=== PATIENT | male | born 1990 | race African-American/Black ===

== ENCOUNTER 2017-06-28 17:50 | Outpatient (CLI) ==
[2017-06-28 18:05] VITALS: BMI 38.0
== END 2017-06-28 17:51 ==
LOC: AMBL 17:50
PROVIDERS: ATTEND Internal Medicine
DX: E11.65 Type 2 diabetes mellitus with hyperglycemia (principal); R51 Headache; M79.605 Pain in left leg; M79.604 Pain in right leg

== ENCOUNTER 2017-06-28 18:00 | Emergency (ER) ==
[2017-06-28 18:05] VITALS: BP 131/93; TEMP 97.8; BMI 38.0
--- NOTE | 2017-06-28 18:39 | ED.PDOC ---
General ED Provider: Dr. MATTI MINER Chief Complaint: Headache Stated Complaint: headache Time Seen by Physician: 18:00 Mode of Arrival: Ambulance Information Source: Patient Exam Limitations: No limitations Nursing and Triage Documentation Reviewed and Agree: Yes Neurological Complaint Exam - Headache Complaint/Exam Onset: Gradual Duration: 1 day Symptoms Are: Resolved Timing: Intermittent Episodes Lasting: Hours Worst Headache Ever: No Initial Severity: Moderate Current Severity: None Location: Diffuse Character: Reports: Dull Aggravating: Reports: None Alleviating: Reports: None Associated Signs and Symptoms: Denies: Dizziness, Seizure, Nausea, Vomiting, Sinus pressure, Fever, Neck pain, Neck stiffness, Decreased LOC, Visual changes Related History: Reports: Similar episode Related Surgical History: Reports: None SAH Risk Factors: Reports: None Meningitis Risk Factors: Reports: None SDH Risk Factors: Reports: None Temporal Arteritis Risk Factors: Reports: None Normal Head CT Within Last 12 Months: No Fundoscopic Exam: Present: Normal Findings Papilledema Present: No Temporal Artery Tenderness: Present: None Sinus Tenderness: Present: None TMJ Tenderness: Present: None Glascow Coma Scale (see protocol): 15 Meningeal Signs Positive: No Pain on Passive Flexion-Positive Kernig's: No ROM Limited In: No Limitiations Focal Weakness: Present: None Focal Sensory Loss: Present: None Gait: Normal Nystagmus Present: No Gag Reflex Present: Yes [id number]: Normal Findings Babinski Sign: Negative Right, Negative Left Differential Diagnoses: Migraine, Tension Headache, Viral Syndrome Review of Systems - Review Of Systems Constitutional: Reports: No symptoms Eyes: Reports: No symptoms Ears, Nose, Mouth, Throat: Reports: No symptoms Respiratory: Reports: No symptoms Cardiac: Reports: No symptoms GI: Reports: No symptoms : Reports: No symptoms Musculoskeletal: Reports: No symptoms Skin: Reports: No symptoms Neurological: Reports: Headache Endocrine: Reports: No symptoms Hematologic/Lymphatic: Reports: No symptoms All Other Systems: Reviewed and Negative Past Medical History - Past Medical History Previously Healthy: Yes Endocrine: Reports: DM 2 Cardiovascular: Reports: Hypertension Respiratory: Reports: None Hematological: Reports: None Gastrointestinal: Reports: None Genitourinary: Reports: None Neuro/Psych: Reports: None Musculoskeletal: Reports: None Cancer: Reports: None - Surgical History General Surgical History: Reports: None - Family History Family History: Reports: None - Social History Smoking Status: Never smoker Hx Substance Use: No Alcohol Screening: None Physical Exam - Physical Exam Appearance: Well-appearing, No pain distress, Well-nourished Eyes: TERESA, EOMI, Conjunctiva clear ENT: Ears normal, Nose normal, Oropharynx normal Respiratory: Airway patent, Breath sounds clear, Breath sounds equal, Respirations nonlabored Cardiovascular: RRR, Pulses normal, No rub, No murmur GI/: Soft, Nontender, No masses, Bowel sounds normal, No Organomegaly Musculoskeletal: Normal strength, ROM intact, No edema, No calf tenderness Skin: Warm, Dry, Normal color Neurological: Sensation intact, Motor intact, Reflexes intact, Cranial nerves intact, Alert, Oriented Psychiatric: Affect appropriate, Mood appropriate Critical Care Note - Critical Care Note Total Time (mins): 0 Course - Course Hematology/Chemistry: 06/28/17 19:00 06/28/17 19:00 Orders, Labs, Meds: Lab Review 06/28/17 19:00 WBC 5.07 RBC 4.70 Hgb 13.6 L Hct 37.9 L MCV 80.6 MCH 28.9 MCHC 35.9 H RDW Coeff of Grazyna 12.2 Plt Count 252 Immature Gran % (Auto) 0.2 Neut % (Auto) 44.9 Lymph % (Auto) 42.2 Delta % (Auto) 10.3 H Eos % (Auto) 1.8 Baso % (Auto) 0.6 Immature Gran # (Auto) 0.0 Neut # 2.3 Lymph # 2.1 Delta # 0.5 Eos # 0.1 Baso # 0.0 Sodium 137 Potassium 4.0 Chloride 98 Carbon Dioxide 32 Anion Gap 11.0 BUN 12 Creatinine 0.97 Estimated GFR (MDRD) 113.00 BUN/Creatinine Ratio 12.37 Glucose 320 H Calcium 9.5 Total Bilirubin 0.41 AST 17 ALT 25 Alkaline Phosphatase 69 Total Protein 6.4 Albumin 3.4 Globulin 3.0 Albumin/Globulin Ratio 1.13 Orders Category Date Time Status CBC W/ AUTO DIFF Stat LAB 06/28/17 19:00 Completed COMPREHENSIVE METABOLIC PANEL Stat LAB 06/28/17 19:[address] HEAD W/O CONTRAST Stat RADS 06/28/17 18:35 Completed Vital Signs: Temp Pulse Resp BP Pulse Ox 06/28/17 18:01 97.8 F 81 20 131/93 H 100 Departure - Departure Time of Disposition: 19:00 Disposition: HOME SELF-CARE Discharge Problem: Headache Instructions: Acute Headache (ED) Condition: Good Pt referred to PMD for follow-up: Yes Additional Instructions: Please call your Family Physician as soon as possible to schedule a follow-up appointment. Allergies/Adverse Reactions: Allergies Unobtainable Allergy (Unverified 06/28/17 18:05) PATIENT STATES HE KNOWS THAT HE IS ALLERGIC TO BUT CAN NOT REMEMBER WHAT IT IS Home Medications: Ambulatory Orders Furosemide 20 mg PO DIRECTED PRN 06/28/17 Lisinopril 20 mg PO BID 06/28/17 Metformin HCl 1,000 mg PO BID 06/28/17 Pregabalin [Lyrica] 100 mg PO TID 06/28/17 Sitagliptin Phosphate [Januvia] 100 mg PO DAILY 06/28/17 Disposition Discussed With: Patient
--- NOTE | 2017-06-28 19:06 | CT ---
EXAM: CT of the head without contrast. HISTORY: Pain. COMPARISON: None. TECHNIQUE: Contiguous axial images at 5 mm intervals were obtained from the base of the skull to th e vertex of the calvarium. No contrast was given. FINDINGS: The CSF containing spaces are normal in size and position. There are no extraaxial fluid collections. There is no evidence of an acute intracranial hemorrhage. There are no masses or mas s effect. No areas of abnormal density are identified. Miranda-white differentiation is normal. Th e osseous and extracranial soft tissues are normal. IMPRESSION: No acute intracranial abnormality.
[2017-06-28 19:10] LABS: BASOPHILS % (AUTO) 0.6 % (0.0-3.0); EOSINOPHILS # (AUTO) 0.1 K/ul (0.0-0.7); EOSINOPHILS % (AUTO) 1.8 % (0.0-7.0); HEMATOCRIT 37.9 % (42.0-52.0); HEMOGLOBIN 13.6 g/dl (14.0-18.0); IMMATURE GRANULOCYTE % (AUTO) 0.2 % (0.0-5.0); LYMPHOCYTES # (AUTO) 2.1 K/uL (0.60-3.4); LYMPHOCYTES % (AUTO) 42.2 (10.0-50.0); MEAN CORPUSCULAR HEMOGLOBIN 28.9 pg (27.0-31.0); MEAN CORPUSCULAR HGB CONC 35.9 (31.8-35.4); MEAN CORPUSCULAR VOLUME 80.6 fl (80.0-94.0); MONOCYTES # (AUTO) 0.5 K/uL (0.4-2.0); MONOCYTES % (AUTO) 10.3 (0-10); NEUTROPHILS # (AUTO) 2.3 K/ul (2.0-6.9); NEUTROPHILS % (AUTO) 44.9; PLATELET COUNT 252 10^3/uL (140-440); WHITE BLOOD COUNT 5.07 K/ul (4.2-10.2)
[2017-06-28 19:30] LABS: ALBUMIN 3.4 g/dL (3.4-5.0); ALBUMIN/GLOBULIN RATIO 1.13; BILIRUBIN,TOTAL 0.41 mg/dL (0.00-1.20); BUN/CREATININE RATIO 12.37; CALCIUM 9.5 mg/dL (8.2-10.2); CREATININE 0.97 mg/dL (0.60-1.10); TOTAL PROTEIN 6.4 g/dL (6.4-8.2)
== END 2017-06-28 20:20 | disposition home or self-care (01) ==
LOC: ED 18:00
DX: R51 Headache (principal)
CPT/HCPCS: 36415; 80053; 85025; 99283